=== PATIENT | male | born 1975 | race Hispanic/Latino ===

== ENCOUNTER 2021-09-10 14:54 | Emergency (ER) | payer BC ==
[~2021-09-10] VITALS: Ht 162.6 cm; Wt 74.8 kg
[~2021-09-10 14:54] MED LIST: TUSSIONEX5 ML PO
[2021-09-10] MEDS ORDERED: CASIRIVIMAB/IMDEVIMAB 10 ML in SODIUM CHLORIDE 0.9% 100 ML IV ONE (15:15)
== END 2021-09-10 17:08 | disposition home or self-care (01) ==
LOC: ER 14:59
DX: U07.1 COVID-19 (principal); E11.9 Type 2 diabetes mellitus without complications; I10 Essential (primary) hypertension
CPT/HCPCS: 99283; J7050